=== PATIENT | male | born 1990 | race Caucasian/White ===

== ENCOUNTER 2020-05-10 15:48 | Emergency (ER) | payer OTHER, SELFPAY ==
[~2020-05-10] VITALS: Ht 172.7 cm; Wt 79.4 kg
[2020-05-10 16:15] VITALS: Ht 172.7 cm; Wt 79.4 kg
[2020-05-10 17:57] VITALS: BP 140/89
== END 2020-05-10 17:57 | disposition home or self-care (01) ==
LOC: ED 15:48
DX: R05 Cough (principal); F17.210 Nicotine dependence, cigarettes, uncomplicated; Z20.828 Contact with and (suspected) exposure to other viral communicable diseases
CPT/HCPCS: U0003-CS